=== PATIENT | male | born 1985 | race African-American/Black ===

== ENCOUNTER 2022-02-16 19:22 | Emergency (ER) | payer MEDICAID ==
[~2022-02-16] VITALS: Ht 170.2 cm; Wt 77.0 kg
[2022-02-16 19:59] VITALS: BP 119/59
== END 2022-02-17 00:52 | disposition left against medical advice (07) ==
LOC: ER 19:22
DX: Z53.21 Procedure and treatment not carried out due to patient leaving prior to being seen by health care provider (principal)